=== PATIENT | female | born 1980 | race African-American/Black ===

== ENCOUNTER 2018-05-20 11:19 | Emergency (ER) | payer OTHER ==
[~2018-05-20] VITALS: Ht 157.5 cm; Wt 70.8 kg
[2018-05-20 13:25] VITALS: BP 121/71
== END 2018-05-20 13:15 | disposition home or self-care (01) ==
LOC: ER 11:19
DX: S61.212A Laceration without foreign body of right middle finger without damage to nail, initial encounter (principal); Z23 Encounter for immunization; W25.XXXA Contact with sharp glass, initial encounter; Y93.E8 Activity, other personal hygiene; Y92.009 Unspecified place in unspecified non-institutional (private) residence as the place of occurrence of the external cause; Y99.8 Other external cause status

== ENCOUNTER 2019-02-21 14:55 | Emergency (ER) | payer BC, OTHER ==
[~2019-02-21] VITALS: Ht 157.5 cm; Wt 71.7 kg
[2019-02-21] MEDS ORDERED: NAPROSYN500 MG PO (16:31)
[2019-02-21] MEDS ORDERED: NORFLEX100 MG PO (16:31)
[2019-02-21 16:39] VITALS: BP 126/81
== END 2019-02-21 16:39 | disposition home or self-care (01) ==
LOC: ER 14:55
DX: M43.6 Torticollis (principal); J45.909 Unspecified asthma, uncomplicated

== ENCOUNTER 2020-12-19 21:02 | Emergency (ER) | payer BC, OTHER ==
[~2020-12-19] VITALS: Ht 157.5 cm; Wt 71.2 kg
[~2020-12-19 21:02] MED LIST: NAPROSYN500 MG PO; NORFLEX100 MG PO
[2020-12-19] MEDS ORDERED: PROAIR HFA8.5 GM INH (21:18)
[2020-12-19 21:40] LABS: URINE BILIRUBIN NEGATIVE (Negative); URINE BLOOD 3+ (Negative); URINE CLARITY CLOUDY; URINE COLOR RED; URINE GLUCOSE-RANDOM* NEGATIVE (Negative); URINE KETONES NEGATIVE (Negative); URINE LEUKOCYTES-REFLEX TRACE (Negative); URINE NITRITE-REFLEX NEGATIVE (Negative); URINE PROTEIN (DIPSTICK) 2+ (Negative); URINE SPECIFIC GRAVITY 1.025 (1.005-1.035); URINE UROBILINOGEN 0.2 E.U./dl (0.2-1.0)
[2020-12-19 21:45] LABS: CASTS None Seen /LPF (None Seen); SQUAMOUS 0-3 Few /LPF (0-3)
[2020-12-19 21:46] LABS: BACTERIA-REFLEX 1-9 Few /HPF (None Seen); CRYSTALS None Seen /LPF (None Seen); URINE RBC >20 Many /HPF (NONE SEEN); URINE WBC-REFLEX 0-5 Rare /HPF (0-5)
[2020-12-19 22:56] LABS: ABSOLUTE NEUTROPHILS 7.3 thou/uL (1.4-8.2); BASOPHILS 0.5 % (0.0-2.0); CALCIUM 8.6 mg/dL (8.5-10.1); EOSINOPHILS 0.2 % (0.0-3.0); HEMATOCRIT 40.5 % (37.0-47.0); HEMOGLOBIN 13.4 gm/dL (12.0-15.0); LYMPHOCYTES 24.2 % (24.0-44.0); MCV 93.8 fL (80.0-100.0); MONOCYTES 6.5 % (1.0-8.0); PLATELET COUNT 292 thou/uL (150-400); POLYS 68.6 % (36.0-66.0); POTASSIUM 3.7 mmol/L (3.5-5.1); RBC 4.32 mil/uL (4.20-5.00); RDW 13.1 % (10.5-14.5); WBC 10.6 thou/uL (4.0-11.0)
[2020-12-19 23:02] LABS: ALBUMIN 3.6 g/dL (3.4-5.0); TOTAL BILIRUBIN 0.3 mg/dL (0.2-1.0); TOTAL PROTEIN 7.5 g/dL (6.4-8.2)
[2020-12-19 23:50] VITALS: BP 125/87
== END 2020-12-19 23:50 | disposition home or self-care (01) ==
LOC: ER 21:02
PROVIDERS: Emergency Medicine
DX: N93.9 Abnormal uterine and vaginal bleeding, unspecified (principal); J45.909 Unspecified asthma, uncomplicated; Z98.51 Tubal ligation status; Z79.899 Other long term (current) drug therapy

== ENCOUNTER 2020-12-21 21:01 | Emergency (ER) | payer BC, OTHER ==
[~2020-12-21] VITALS: Ht 157.5 cm; Wt 66.7 kg
[~2020-12-21 21:01] MED LIST changes: +PROAIR HFA8.5 GM INH
[2020-12-21 22:10] VITALS: BP 123/72
== END 2020-12-21 22:11 | disposition home or self-care (01) ==
LOC: ER 21:01
DX: O03.9 Complete or unspecified spontaneous abortion without complication (principal); O46.91 Antepartum hemorrhage, unspecified, first trimester; J45.909 Unspecified asthma, uncomplicated; Z98.890 Other specified postprocedural states; Z79.51 Long term (current) use of inhaled steroids

== ENCOUNTER 2021-03-01 18:35 | Emergency (ER) | payer BC, OTHER ==
[~2021-03-01] VITALS: Ht 157.5 cm; Wt 71.7 kg
[2021-03-01 18:59] LABS: URINE BILIRUBIN NEGATIVE (Negative); URINE BLOOD NEGATIVE (Negative); URINE CLARITY CLEAR; URINE COLOR YELLOW; URINE GLUCOSE-RANDOM* NEGATIVE (Negative); URINE KETONES 1+ (Negative); URINE LEUKOCYTES-REFLEX NEGATIVE (Negative); URINE NITRITE-REFLEX NEGATIVE (Negative); URINE PROTEIN (DIPSTICK) NEGATIVE (Negative); URINE UROBILINOGEN 0.2 E.U./dl (0.2-1.0)
[2021-03-01 20:01] LABS: ABSOLUTE NEUTROPHILS 5.9 thou/uL (1.4-8.2); BASOPHILS 0.4 % (0.0-2.0); HEMOGLOBIN 13.8 gm/dL (12.0-15.0); LYMPHOCYTES 23.1 % (24.0-44.0); MCH 31.5 pg (26.0-34.0); MCHC 32.9 g/dL (28.0-37.0); MCV 95.8 fL (80.0-100.0); MONOCYTES 6.1 % (1.0-8.0); PLATELET COUNT 289 thou/uL (150-400); POLYS 70.4 % (36.0-66.0); RBC 4.39 mil/uL (4.20-5.00); RDW 13.1 % (10.5-14.5); WBC 8.5 thou/uL (4.0-11.0)
[2021-03-01 20:31] LABS: CREATININE 0.9 mg/dL (0.6-1.0); POTASSIUM 4.5 mmol/L (3.5-5.1)
[2021-03-01 20:45] VITALS: BP 109/68
== END 2021-03-02 00:50 | disposition home or self-care (01) ==
LOC: ER 18:35
PROVIDERS: Student in an Organized Health Care Education/Training Program
DX: R10.31 Right lower quadrant pain (principal); J45.909 Unspecified asthma, uncomplicated; Z98.51 Tubal ligation status; Z79.51 Long term (current) use of inhaled steroids